=== PATIENT | female | born 2000 | race Caucasian/White ===

== ENCOUNTER 2024-02-11 05:01 | Inpatient (IN) | payer MEDICAID ==
[2024-02-11] MEDS ORDERED: Tranexamic Acid 1,000 MG in Sodium Chloride 0.9% 100 ML IV PRN (06:00)
[2024-02-11] MEDS ORDERED: Sodium Chloride 0.9% 10 ML Syringe FLUSH PRN (06:00)
[2024-02-11] MEDS ORDERED: Carboprost Tromethamine 250 MCG/1 ML Amp IM PRN (06:00)
[2024-02-11] MEDS ORDERED: Methylergonovine 0.2 MG/1 ML Amp IM PRN (06:00)
[2024-02-11] MEDS ORDERED: Acetaminophen 325 MG Tab PO PRN (06:00)
[2024-02-11] MEDS: Penicillin G Potassium 5 MILLUNITS in Sodium Chloride 0.9% 100 ML IV ONE (06:12)
[2024-02-11] MEDS: fentaNYL 100 MCG/2 ML SDV IVPUSH ONE ×2 (06:18→07:23)
[2024-02-11 06:21] LABS: HEMATOCRIT 37.8 % (37.0-47.0); HEMOGLOBIN 12.4 g/dL (12.0-16.0); MEAN CORPUSCULAR HEMOGLOBIN 27.8 pg (27.0-34.0); MEAN CORPUSCULAR HGB CONC 32.8 g/dL (33.0-35.0); MEAN CORPUSCULAR VOLUME 84.8 fL (80-100); RED BLOOD CELL COUNT 4.46 10^6/uL (4.2-5.4); WHITE BLOOD CELL COUNT,WBC 18.5 10^3/uL (5.0-10.0)
[2024-02-11] MEDS: Lactated Ringers 1,000 ML IV SCH (08:43)
[2024-02-11] MEDS: Penicillin G Potassium 3 MILLUNITS in Sodium Chloride 0.9% 100 ML IV SCH (10:35)
[2024-02-11] MEDS: Oxytocin/Normal Saline 30 UNIT/500 ML BAG IV SCH (15:15)
[2024-02-11] MEDS: Ondansetron 4 MG/2 ML SDV IVPUSH PRN (15:38)
[2024-02-11 16:11] LABS: APPEARANCE,URINE CLEAR (CLEAR); BILIRUBIN,URINE NEGATIVE (NEGATIVE); COLOR,URINE YELLOW (YELLOW); GLUCOSE,URINE NEGATIVE (NEGATIVE); KETONES,URINE 80 (NEGATIVE); LEUKOCYTE ESTERASE,URINE NEGATIVE (NEGATIVE); NITRITE,URINE NEGATIVE (NEGATIVE); OCCULT BLOOD,URINE MODERATE (NEGATIVE); PROTEIN,URINE TRACE (NEGATIVE); UROBILINOGEN,URINE 0.2 mg/dL (0.2-1.0)
[2024-02-11 16:12] LABS: CREATININE 0.58 mg/dL (0.55-1.02); EST CRCL DRUG DOSING (CG) 125.86 mL/min; URIC ACID 4.3 mg/dL (2.6-6.0)
[2024-02-11 16:21] LABS: CREATININE,URINE RAND 147.01 mg/dL (No establ ref range); PROTEIN CREATININE RATIO,URINE 334.7 mg/g (<150.0); PROTEIN,URINE RANDOM 49.2 mg/dL (0.0-11.9)
[2024-02-11] MEDS ORDERED: Oxytocin 10 Units/1 ML SDV IM PRN (20:14)
[2024-02-11] MEDS ORDERED: Benzocaine/Menthol 20%-0.5% Spray 78 GM Cannister TOP PRN (20:14)
[2024-02-11] MEDS ORDERED: Simethicone 80 MG Tab.Chew PO PRN (20:14)
[2024-02-11] MEDS ORDERED: Misoprostol 100 MCG Tab RECTAL PRN (20:14)
[2024-02-11] MEDS: Ibuprofen 800 MG Tab PO SCH (22:07)
[2024-02-11] MEDS: Witch Hazel Medicated Pads 100/Jar TOP PRN (22:08)
[2024-02-12] MEDS: Lidocaine 1% 30 ML SDV INJECT ONE (00:16)
[2024-02-12] MEDS: Lactated Ringers 1,000 ML IV ONE (00:16)
[2024-02-12] MEDS: QUEtiapine 25 MG Tab ONE (02:15)
[2024-02-12] MEDS: lamoTRIgine 100 MG Tab ONE ×2 (02:15→02:41)
[2024-02-12] MEDS: QUEtiapine 25 MG Tab PO SCH (02:16)
[2024-02-12] MEDS: lamoTRIgine 100 MG Tab PO ONE ×2 (02:42→21:57)
[2024-02-12] MEDS ORDERED: ePHEDrine 50 MG/ML SDV IVPUSH PRN (09:19)
[2024-02-12] MEDS ORDERED: Phenylephrine HCl In 0.9% NaCl 1 MG/10 ML Syringe IVPUSH PRN (09:19)
[2024-02-12 09:21] LABS: HEMATOCRIT 34.3 % (37.0-47.0); HEMOGLOBIN 11.1 g/dL (12.0-16.0); MEAN CORPUSCULAR HEMOGLOBIN 27.9 pg (27.0-34.0); MEAN CORPUSCULAR HGB CONC 32.4 g/dL (33.0-35.0); MEAN CORPUSCULAR VOLUME 86.2 fL (80-100); RED BLOOD CELL COUNT 3.98 10^6/uL (4.2-5.4); WHITE BLOOD CELL COUNT,WBC 15.8 10^3/uL (5.0-10.0)
[2024-02-12] MEDS ORDERED: Ropivacaine 200 MG in Premix Bag 1 BAG EPIDUR SCH (09:30)
[2024-02-12] MEDS: Prenatal Multivitamin with Calcium/Folic Acid/Iron Tab PO SCH (09:54)
[2024-02-12] MEDS: Docusate Sodium 100 MG Cap PO PRN (09:54)
[2024-02-12] MEDS ORDERED: lamoTRIgine 100 MG Tab PO SCH (21:00)
[2024-02-12] MEDS: Sertraline 50 MG Tab PO SCH (21:57)
[2024-02-13] MEDS: Acetaminophen 325 MG Tab PO PRN (00:05)
[2024-02-13 14:08] VITALS: BP 134/74; PULSE 95
== END 2024-02-13 12:55 | disposition home or self-care (01) | DRG 807 ==
LOC: DL.OBCHECK 05:01 → DL.OB 05:30 → OBSVTOIN 19:28
PROVIDERS: ADMIT Family Medicine; ATTEND Family Medicine
PROC: 10E0XZZ Delivery of Products of Conception, External Approach (ICD-10-PCS; principal; 2024-02-11)
PROC: 0HQ9XZZ Repair Perineum Skin, External Approach (ICD-10-PCS; 2024-02-11)
PROC: 3E0R3BZ Introduction of Anesthetic Agent into Spinal Canal, Percutaneous Approach (ICD-10-PCS; 2024-02-11)
PROC: 00HU33Z Insertion of Infusion Device into Spinal Canal, Percutaneous Approach (ICD-10-PCS; 2024-02-11)
DX: O42.02 Full-term premature rupture of membranes, onset of labor within 24 hours of rupture (principal); Z37.0 Single live birth; F32.9 Major depressive disorder, single episode, unspecified; O99.343 Other mental disorders complicating pregnancy, third trimester; O99.824 Streptococcus B carrier state complicating childbirth; O77.0 Labor and delivery complicated by meconium in amniotic fluid; O70.0 First degree perineal laceration during delivery; O14.94 Unspecified pre-eclampsia, complicating childbirth; Z3A.39 39 weeks gestation of pregnancy
CPT/HCPCS: 01967; 36415; 51701; 51702; 59409; 81003; 82565; 82570; 83615; 84156; 84450; 84460; 84520; 84550; 85027; A9270-GY; C1729; J2405; J2540; J2590; J3010; J3490; J7120

== ENCOUNTER 2025-01-03 07:02 | Day surgery (SDC) | payer MEDICAID ==
[2025-01-03] MEDS ORDERED: Propofol 200 MG/20 ML SDV IV ONE (07:03)
[2025-01-03] MEDS ORDERED: Lactated Ringers 1,000 ML IV ONE (07:03)
[2025-01-03] MEDS: Lactated Ringers 1,000 ML IV SCH (07:50)
[2025-01-03 09:40] VITALS: BP 95/58; PULSE 70
== END 2025-01-03 10:02 | disposition home or self-care (01) ==
LOC: DL.ENDO 07:02
PROVIDERS: ATTEND Internal Medicine Gastroenterology
DX: R10.13 Epigastric pain (principal); K21.9 Gastro-esophageal reflux disease without esophagitis; F32.A Depression, unspecified; E66.09 Other obesity due to excess calories; Z91.040 Latex allergy status; Z68.32 Body mass index [BMI] 32.0-32.9, adult; Z79.899 Other long term (current) drug therapy
CPT/HCPCS: 43239; A9270; J2003; J2704; J7120